=== PATIENT | male | born 1995 | race Caucasian/White ===

== ENCOUNTER 2016-08-27 12:46 | Emergency (ER) | payer OTHER ==
[~2016-08-27] VITALS: Ht 180.3 cm; Wt 70.8 kg
[2016-08-27] MEDS ORDERED: KETOROLAC 30 MG/ML VIAL (J1885) IM ONE (13:45)
--- NOTE | 2016-08-27 14:39 | REP ---
THORACIC SPINE: Three AP and lateral views of the thoracic spine are performed. There is no compression fracture or malalignment. There is normal thoracic kyphosis. Disc spaces are well preserved. Posterior elements are intact. IMPRESSION: No fracture or dislocation. Signed by Jonatan Mcbride MD 08/27/2016 04:44 P
[2016-08-27] MEDS ORDERED: PRED20TA PO (14:44)
[2016-08-27] MEDS ORDERED: MOBI7.5T10 PO (14:44)
--- NOTE | 2016-08-27 14:44 | REP ---
LUMBOSACRAL SPINE: Five views lumbosacral spine are performed. There is no compression fracture or malalignment. There is normal lumbar lordosis. There is no spondylolysis or spondylolisthesis. Disc spaces are normal in thickness. Posterior elements are intact. IMPRESSION: No fracture or dislocation. Signed by Jonatan Mcbride MD 08/27/2016 04:44 P
[2016-08-27] MEDS ORDERED: ZANA4TAB PO (14:45)
[2016-08-27 15:00] VITALS: BP 129/66
== END 2016-08-27 15:15 | disposition home or self-care (01) ==
LOC: M ED 13:25
DX: M54.5 Low back pain (principal); M54.6 Pain in thoracic spine; Z79.899 Other long term (current) drug therapy
CPT/HCPCS: 72072; 72110; 96372; 99282; J1885